=== PATIENT | female | born 1975 | race Caucasian/White ===

== ENCOUNTER 2021-08-22 13:41 | Emergency (ER) | payer OTHER ==
[2021-08-22] MEDS ORDERED: ILOTYCIN1 GM OD (15:23)
== END 2021-08-22 15:37 | disposition home or self-care (01) ==
LOC: FER 13:41
DX: T15.01XA Foreign body in cornea, right eye, initial encounter (principal); F17.210 Nicotine dependence, cigarettes, uncomplicated; Z28.310 Unvaccinated for COVID-19
CPT/HCPCS: 99283